=== PATIENT | female | born 1955 | race Caucasian/White ===

== ENCOUNTER 2019-07-24 10:58 | Observation (INO) | payer SELFPAY ==
[2019-07-24] MEDS ORDERED: Ondansetron 4 MG/2 ML SDV IVPUSH ONE (11:19)
[2019-07-24] MEDS ORDERED: Nitroglycerin 0.4 MG Tab.SL SL ONE ×3 (11:20→12:26)
[2019-07-24] MEDS ORDERED: Aspirin 325 MG Tab.EC PO ONE (11:24)
[2019-07-24 11:28] LABS: BLOOD UREA NITROGEN,BUN 16 mg/dL (7.0-18.0); CARBON DIOXIDE,CO2 20.2 mmol/L (21.0-32.0); CHLORIDE,CL 105 mmol/L (98-107); GLUCOSE RANDOM 116 mg/dL (74-106); POTASSIUM,K 3.5 mmol/L (3.5-5.1); SODIUM,NA 141 mmol/L (136-145)
[2019-07-24] MEDS ORDERED: Aspirin 325 MG Tab ONE (11:28)
--- NOTE | 2019-07-24 11:30 | EDM.PDOC ---
ED HPI GENERAL MEDICAL PROBLEM - General Chief Complaint: Chest Pain Stated Complaint: CHEST PAIN Time Seen by Provider: 07/24/19 11:18 Source of Information: Reports: Patient History Limitations: Reports: No Limitations - History of Present Illness INITIAL COMMENTS - FREE TEXT/NARRATIVE: This 64 year old female with no history of cardiac disease complains of sub- sternal chest pain (pressure and tightness) that started at 10:00 AM this morning. she complains of associated pain into her left jaw, left arm and mid back pain just to the left of her scapula. She also complains of mild SOB all of which started at 10:00AM. Her stated that she had a similar episode 5 years ago but not treated. She denies any other problems at this time. Onset: Sudden Duration: Constant Location: Reports: Chest, Back (and left upper to left mid back.) Quality: Reports: Pressure, Sharp Severity: Moderate Improves with: Reports: None Worsens with: Reports: None Associated Symptoms: Reports: Chest Pain, Diaphoresis, Nausea/Vomiting (nausea but no vomiting.), Shortness of Breath. Denies: Syncope chest and left side Pain Score (Numeric/FACES): 7 - Related Data Allergies Allergy/AdvReac Type Severity Reaction Status Date / Time Sulfa (Sulfonamide Allergy Other Verified 07/24/19 11:07 Antibiotics) Home Meds: Home Meds . [Unable to Verify Home Med List] 07/24/19 [History] Past Medical History Endocrine/Metabolic History: Reports: Hypothyroidism - Past Surgical History Respiratory Surgical History: Reports: Other (See Below) Other Respiratory Surgeries/Procedures: Lung Sx GI Surgical History: Reports: Appendectomy Female Surgical History: Reports: Other (See Below) Other Female Surgeries/Procedures: States she had a ovary surgery but unsure of for what Social & Family History - Family History Family Medical History: Noncontributory - Tobacco Use Smoking Status *Q: Never Smoker - Recreational Drug Use Recreational Drug Use: No ED ROS GENERAL - Review of Systems Review Of Systems: See Below Constitutional: Reports: No Symptoms HEENT: Reports: No Symptoms Respiratory: Reports: Shortness of Breath (mild.). Denies: Pleuritic Chest Pain , Cough Cardiovascular: Reports: Chest Pain (as noted above.), Blood Pressure Problem ( blood pressure is elevated in ED.). Denies: Dyspnea on Exertion, Lightheadedness, Orthopnea, Palpitations, Syncope Endocrine: Reports: No Symptoms GI/Abdominal: Reports: No Symptoms : Reports: No Symptoms Musculoskeletal: Reports: No Symptoms Skin: Reports: No Symptoms Neurological: Reports: No Symptoms Psychiatric: Reports: No Symptoms Immunologic: Reports: No Symptoms ED EXAM, GENERAL - Physical Exam Exam: See Below Exam Limited By: No Limitations General Appearance: Alert, WD/WN, No Apparent Distress Eye Exam: Bilateral Eye: EOMI, Normal Inspection, PERRL Ears: Normal External Exam, Normal Canal, Hearing Grossly Normal, Normal TMs Ear Exam: Bilateral Ear: Auricle Normal, Canal Normal, TM normal Nose: Normal Inspection, Normal Mucosa, No Blood Throat/Mouth: Normal Inspection, Normal Lips, Normal Teeth, Normal Gums, Normal Oropharynx, Normal Voice, No Airway Compromise Head: Atraumatic, Normocephalic Neck: Normal Inspection, Supple, Non-Tender, Full Range of Motion. No: Carotid Bruit, Thyromegaly Respiratory/Chest: No Respiratory Distress, Lungs Clear, Normal Breath Sounds, No Accessory Muscle Use. No: Crackles, Rales, Rhonchi, Wheezing Cardiovascular: Normal Peripheral Pulses, Regular Rate, Rhythm, No Edema, No Gallop, No JVD, No Murmur, No Rub. No: Diastolic Murmur, Systolic Murmur, Gallop/S3 Peripheral Pulses: 3+: Carotid (L), Carotid (R), Radial (L), Radial (R), Dorsalis Pedis (L), Dorsalis Pedis (R) GI/Abdominal: Normal Bowel Sounds, Soft, Non-Tender, No Organomegaly, No Distention, No Abnormal Bruit, No Mass Back Exam: Normal Inspection, Full Range of Motion, NT Extremities: Normal Inspection, Normal Range of Motion, Non-Tender, Normal Capillary Refill, No Pedal Edema Neurological: Alert, Oriented, CN II-XII Intact, Normal Cognition, Normal Gait, Normal Reflexes, No Motor/Sensory Deficits Psychiatric: Normal Affect, Normal Mood Skin Exam: Warm, Dry, Intact, Normal Color, No Rash Lymphatic: No Adenopathy Course - Vital Signs Text/Narrative:: I discussed with the patient and her and daughter all of her diagnostic studies. I went over the HEART score and the MACE. She has a HEART score of 4 based on her symptoms and her age of 64. Her Troponin 1 times two is negative. 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 She will be admitted to tel-obs per Dr. Foreman to Dr. Russell service. They agree with the admission. Last Recorded V/S: Last Vital Signs Temp 97.4 F 07/24/19 11:04 Pulse 61 07/24/19 16:10 Resp 18 07/24/19 16:10 BP 127/67 07/24/19 16:10 Pulse Ox 98 07/24/19 16:10 - Orders/Labs/Meds Orders: Active Orders 24 hr Category Date Time Status Admission Status [Patient Status] [ADT] Stat ADT 07/24/19 15:50 Active Cardiac Monitoring [RC] . DIRECTED Care 07/24/19 11:03 Active Saline Lock Insert [OM.PC] Stat Oth 07/24/19 11:04 Ordered Labs: Laboratory Tests 07/24/19 07/24/19 07/24/19 Range/Units 11:00 11:00 12:10 WBC 6.26 (4.0-11.0) K/uL RBC 4.43 (4.30-5.90) M/uL Hgb 12.7 (12.0-16.0) g/dL Hct 35.7 L (36.0-46.0) % MCV 80.6 (80.0-98.0) fL MCH 28.7 (27.0-32.0) pg MCHC 35.6 (31.0-37.0) g/dL RDW Std Deviation 37.7 (28.0-62.0) fl RDW Coeff of Cornelio 13 (11.0-15.0) % Plt Count 239 (150-400) K/uL MPV 9.60 (7.40-12.00) fL Neut % (Auto) 44.8 L (48.0-80.0) % Lymph % (Auto) 45.0 H (16.0-40.0) % [place] % (Auto) 9.3 (0.0-15.0) % Eos % (Auto) 0.6 (0.0-7.0) % Baso % (Auto) 0.3 (0.0-1.5) % Neut # (Auto) 2.8 (1.4-5.7) K/uL Lymph # (Auto) 2.8 H (0.6-2.4) K/uL [place] # (Auto) 0.6 (0.0-0.8) K/uL Eos # (Auto) 0.0 (0.0-0.7) K/uL Baso # (Auto) 0.0 (0.0-0.1) K/uL Sodium 141 (136-145) mmol/L Potassium 3.5 (3.5-5.1) mmol/L Chloride 105 (98-107) mmol/L Carbon Dioxide 20.2 L (21.0-32.0) mmol/L BUN 16 (7.0-18.0) mg/dL Creatinine 0.8 (0.6-1.0) mg/dL Est Cr Clr Drug Dosing 63.93 mL/min Estimated GFR (MDRD) > 60.0 ml/min Glucose 116 H (74-106) mg/dL Calcium 9.5 (8.5-10.1) mg/dL Magnesium 2.0 (1.8-2.4) mg/dL Total Bilirubin 0.5 (0.2-1.0) mg/dL AST 22 (15-37) IU/L ALT 33 (14-63) IU/L Alkaline Phosphatase 87 (46-116) U/L Troponin I < 0.050 (0.000-0.056) ng/mL Total Protein 7.8 (6.4-8.2) g/dL Albumin 4.0 (3.4-5.0) g/dL Globulin 3.8 (2.6-4.0) g/dL Albumin/Globulin Ratio 1.1 (0.9-1.6) Urine Color YELLOW Urine Appearance CLEAR Urine pH 7.5 (5.0-8.0) Ur Specific [place] <= 1.005 (1.001-1.035) Urine Protein NEGATIVE (NEGATIVE) mg/dL Urine Glucose (UA) NEGATIVE (NEGATIVE) mg/dL Urine Ketones NEGATIVE (NEGATIVE) mg/dL Urine Occult Blood NEGATIVE (NEGATIVE) Urine Nitrite NEGATIVE (NEGATIVE) Urine Bilirubin NEGATIVE (NEGATIVE) Urine Urobilinogen 0.2 (<2.0) EU/dL Ur Leukocyte Esterase NEGATIVE (NEGATIVE) 07/24/19 Range/Units 14:56 WBC (4.0-11.0) K/uL RBC (4.30-5.90) M/uL Hgb (12.0-16.0) g/dL Hct (36.0-46.0) % MCV (80.0-98.0) fL MCH (27.0-32.0) pg MCHC (31.0-37.0) g/dL RDW Std Deviation (28.0-62.0) fl RDW Coeff of Cornelio (11.0-15.0) % Plt Count (150-400) K/uL MPV (7.40-12.00) fL Neut % (Auto) (48.0-80.0) % Lymph % (Auto) (16.0-40.0) % [place] % (Auto) (0.0-15.0) % Eos % (Auto) (0.0-7.0) % Baso % (Auto) (0.0-1.5) % Neut # (Auto) (1.4-5.7) K/uL Lymph # (Auto) (0.6-2.4) K/uL [place] # (Auto) (0.0-0.8) K/uL Eos # (Auto) (0.0-0.7) K/uL Baso # (Auto) (0.0-0.1) K/uL Sodium (136-145) mmol/L Potassium (3.5-5.1) mmol/L Chloride (98-107) mmol/L Carbon Dioxide (21.0-32.0) mmol/L BUN (7.0-18.0) mg/dL Creatinine (0.6-1.0) mg/dL Est Cr Clr Drug Dosing mL/min Estimated GFR (MDRD) ml/min Glucose (74-106) mg/dL Calcium (8.5-10.1) mg/dL Magnesium (1.8-2.4) mg/dL Total Bilirubin (0.2-1.0) mg/dL AST (15-37) IU/L ALT (14-63) IU/L Alkaline Phosphatase (46-116) U/L Troponin I < 0.050 (0.000-0.056) ng/mL Total Protein (6.4-8.2) g/dL Albumin (3.4-5.0) g/dL Globulin (2.6-4.0) g/dL Albumin/Globulin Ratio (0.9-1.6) Urine Color Urine Appearance Urine pH (5.0-8.0) Ur Specific [place] (1.001-1.035) Urine Protein (NEGATIVE) mg/dL Urine Glucose (UA) (NEGATIVE) mg/dL Urine Ketones (NEGATIVE) mg/dL Urine Occult Blood (NEGATIVE) Urine Nitrite (NEGATIVE) Urine Bilirubin (NEGATIVE) Urine Urobilinogen (<2.0) EU/dL Ur Leukocyte Esterase (NEGATIVE) Meds: Medications Discontinued Medications Generic Name Dose Route Start Last Admin Trade Name Freq PRN Reason Stop Dose Admin Aspirin 325 mg 07/24/19 11:24 07/24/19 11:34 Ecotrin PO 07/24/19 11:25 Not Given ONETIME ONE Aspirin Confirm 07/24/19 11:28 07/24/19 12:24 Aspirin Administered 07/24/19 11:29 Not Given Dose 325 mg .ROUTE .STK-MED ONE Aspirin 325 mg 07/24/19 11:35 07/24/19 11:41 Aspirin PO 07/24/19 11:36 325 mg ONETIME ONE Administration Iopamidol 100 ml 07/24/19 12:09 07/24/19 12:09 Isovue Multipack-370 (76%) IVPUSH 07/24/19 12:10 100 ml ONETIME ONE Administration Ketorolac Tromethamine 30 mg 07/24/19 14:28 07/24/19 14:37 Toradol IVPUSH 07/24/19 14:29 30 mg ONETIME ONE Administration Nitroglycerin 0.4 mg 07/24/19 11:20 07/24/19 11:47 Nitrostat SL 07/24/19 11:21 0.4 mg ONETIME ONE Administration Nitroglycerin 0.4 mg 07/24/19 12:25 07/24/19 12:25 Nitrostat SL 07/24/19 12:26 0.4 mg ONETIME ONE Administration Nitroglycerin 0.4 mg 07/24/19 12:26 07/24/19 12:57 Nitrostat SL 07/24/19 12:27 Not Given ONETIME ONE Ondansetron HCl 4 mg 07/24/19 11:19 07/24/19 11:42 Zofran IVPUSH 07/24/19 11:20 4 mg ONETIME ONE Administration Departure - Departure Time of Disposition: 16:57 Disposition: Refer to Observation Condition: Fair Clinical Impression: Chest pain Qualifiers: Chest pain type: unspecified Qualified Code(s): R07.9 - Chest pain, unspecified Sepsis Event Note - Evaluation Sepsis Screening Result: No Definite Risk - Focused Exam Vital Signs: Vital Signs Temp Pulse Resp BP BP Pulse Ox 07/24/19 16:10 61 18 127/67 98 07/24/19 14:33 63 18 119/67 98 07/24/19 13:57 63 12 116/64 98 07/24/19 12:50 67 18 119/69 98 07/24/19 12:25 130/68 07/24/19 11:48 70 18 133/70 99 07/24/19 11:47 133/70 07/24/19 11:04 97.4 F 97 20 169/86 H 100 Date Exam was Performed: 07/24/19 Time Exam was Performed: 16:51 - My Orders Last 24 Hours: My Active Orders 07/24/19 11:03 Cardiac Monitoring [RC] . DIRECTED 07/24/19 11:04 Saline Lock Insert [OM.PC] Stat 07/24/19 15:50 Admission Status [Patient Status] [ADT] Stat - Assessment/Plan Last 24 Hours: My Active Orders 07/24/19 11:03 Cardiac Monitoring [RC] . DIRECTED 07/24/19 11:04 Saline Lock Insert [OM.PC] Stat 07/24/19 15:50 Admission Status [Patient Status] [ADT] Stat
[2019-07-24] MEDS ORDERED: Aspirin 325 MG Tab PO ONE (11:35)
--- NOTE | 2019-07-24 11:53 | CR ---
Chest: Portable view of the chest was obtained. Comparison: No prior chest imaging. Deformity is seen of several right ribs which appear old. Heart size is normal. Upper mediastinum is normal. Scoliosis is noted within the spine. No acute parenchymal change is seen within either lung. Impression: 1. Chronic bony findings as noted above. 2. Nothing acute is appreciated on portable chest x-ray. Diagnostic code #2 This report was dictated in [place] Standard Time
[2019-07-24] MEDS ORDERED: Iopamidol 755 MG/ML 200 ML Multipack Bottle IVPUSH ONE (12:09)
--- NOTE | 2019-07-24 12:42 | CT ---
CT chest and abdomen Technique: Multiple axial sections through the chest and abdomen were obtained. Intravenous contrast was utilized. Study has been performed as a pulmonary angiogram protocol. Comparison: Prior chest x-ray performed earlier on the same day (11:05 AM). Findings: Pulmonary arteries are well opacified. No filling defects arteries are seen to indicate pulmonary embolism. Aorta shows no aneurysm. Aorta also shows no dissection. Mediastinum and hilar region show no adenopathy. No axillary adenopathy is seen. Coronary artery calcification is seen. No pericardial thickening is seen. Small hiatal hernia is noted. Slight parenchymal density is noted within the right lung base. This is in area of previous healed rib fractures and findings most likely represent scarring. Lungs otherwise are clear. No acute parenchymal change is suspected. Abdominal aorta shows no aneurysm or dissection. Celiac axis and superior mesenteric arteries appear unremarkable. Renal arteries also appear within normal limits. Inferior mesenteric artery is patent. Common femoral arteries are patent. Liver and spleen shows no focal abnormality. Gallbladder contains no calcified gallstones. Adrenal glands show no nodule. Pancreas is within normal limits. Kidneys show symmetric contrast enhancement. No retroperitoneal adenopathy or mesenteric abnormalities are seen. Small fat-containing umbilical hernia is noted. Appendix not visualized on this exam. Bone window settings were reviewed which show mild degenerative change within the thoracic spine with mild kyphosis. No acute osseous finding is seen. Several old healed right-sided rib fractures are noted. Impression: 1. No findings of pulmonary embolism. 2. Aorta shows no aneurysm or dissection. 3. Other findings believed to be incidental as noted above. 4. Nothing acute is seen on CT study of the chest and abdomen. Diagnostic code #2 This report was dictated in [place] Standard Time
[2019-07-24] MEDS ORDERED: Ketorolac 30 MG/ML SDV IVPUSH ONE (14:28)
--- NOTE | 2019-07-24 16:37 | CT ---
This study was dictated as part of previous chest CT.
[2019-07-24] MEDS ORDERED: Ondansetron 4 MG Tab.DIS PO PRN (17:23)
--- NOTE | 2019-07-24 17:28 | PCM.HP.2 ---
<Mo Foreman - Last Filed: 07/24/19 20:06> H&P History of Present Illness - General Date of Service: 07/24/19 Admit Problem/Dx: Admission Diagnosis/Problem Admission Diagnosis/Problem Chest pain syndrome Source of Information: Patient History Limitations: Reports: No Limitations - History of Present Illness Initial Comments - Free Text/Narative: Patient is a 64-year-old female with a significant past medical history of hypothyroidism on nature-thyroid, lung carcinoma status post partial lobectomy ( RLL/2-years prior; w. interval nominal ct-scans): Presenting today with substernal chest pain rated at a 7 out of 10 with some radiation into her jaw and into her back. States the pain and shortness of breath came out of nowhere while she was getting ready in the morning, denied any major exertion prior to the episode occurring. Patient proceeded to the emergency department secondary to concerns that this may have been a heart attack. ED course: Chest x-ray: Unremarkable CT ANGIO: No aneurysm or dissection appreciated. Abdominal CTA: Report pending Blood pressure was elevated: No fluids were given; patient was however given nitroglycerin x3, Zofran, Toradol and 1 dose of full aspirin. Blood pressure improved. Pain had resolved. Bedside: Patient endorsed similar symptoms 5 to 6 years ago with a negative cardiac work-up. States she currently does not feel the pain that she had initially but still feels a little pressure in her chest. Denies any overt shortness of breath or recent symptoms. chest and left side Pain Score (Numeric/FACES): 7 - Related Data Allergies/Adverse Reactions: Allergies Allergy/AdvReac Type Severity Reaction Status Date / Time Sulfa (Sulfonamide Allergy Hives Verified 07/24/19 17:23 Antibiotics) Home Medications: Home Meds Cholecalciferol (Vitamin D3) [Vitamin D] 5,000 unit PO DAILY 07/24/19 [History] Fish Oil/[place]-3 Fatty Acids [Fish Oil 1,000 MG] 1 each PO DAILY 07/24/19 [ History] Thyroid,Pork [Nature-Throid] 1 tab PO .MONWEDFRISAT 07/24/19 [History] Thyroid,Pork [Nature-Throid] 1.5 tab PO .TUESTHURSUN 07/24/19 [History] Past Medical History HEENT History: Reports: Other (See Below) Other HEENT History: wears glasses Musculoskeletal History: Reports: Arthritis Endocrine/Metabolic History: Reports: Hypothyroidism Oncologic (Cancer) History: Reports: Other (See Below) Other Oncologic History: carcinoma in her lung that was removed - Past Surgical History Respiratory Surgical History: Reports: Other (See Below) Other Respiratory Surgeries/Procedures: Lung Sx carcinoma tumor GI Surgical History: Reports: Appendectomy Female Surgical History: Reports: Other (See Below) Other Female Surgeries/Procedures: States she had a ovary surgery but unsure of for what Social & Family History - Family History Family Medical History: Noncontributory - Tobacco Use Smoking Status *Q: Never Smoker Second Hand Smoke Exposure: No - Caffeine Use Caffeine Use: Reports: Coffee Caffeine Use Comment: uses decaffinated mostly - Recreational Drug Use Recreational Drug Use: No H&P Review of Systems - Review of Systems: Review Of Systems: See Below General: Denies: Fever, Chills, Malaise, Weakness, Fatigue HEENT: Reports: No Symptoms. Denies: Headaches Pulmonary: Reports: No Symptoms. Denies: Shortness of Breath, Wheezing Cardiovascular: Reports: No Symptoms. Denies: Chest Pain, Palpitations, Dyspnea on Exertion, Edema Gastrointestinal: Denies: Abdominal Pain, Constipation, Diarrhea Genitourinary: Reports: Other (did mention some dysuria 3-days prior which resolved spontaneously ). Denies: Dysuria, Frequency, Burning Musculoskeletal: Reports: No Symptoms Skin: Reports: No Symptoms Psychiatric: Denies: Confusion, Depression Neurological: Denies: Confusion, Dizziness, Headache, Numbness Exam - Exam Exam: See Below - Vital Signs Vital Signs: Last Vital Signs Temp 96.7 F 07/24/19 17:22 Pulse 68 07/24/19 17:22 Resp 17 07/24/19 17:22 BP 139/73 07/24/19 17:22 Pulse Ox 96 07/24/19 17:22 Weight: 86.5 kg - Exam Quality Assessment: No: Supplemental Oxygen General: Alert, Oriented, Cooperative HEENT: EOMI, Mucosa Moist & [place] Neck: Supple, Trachea Midline Lungs: Clear to Auscultation, Normal Respiratory Effort Cardiovascular: Regular Rate, Regular Rhythm GI/Abdominal Exam: Soft, Non-Tender, No Organomegaly Back Exam: Full Range of Motion Skin: Warm Neurological: Cranial Nerves Intact, Reflexes Equal Bilateral Neuro Extensive - Mental Status: Alert, Oriented x3, Normal Mood/Affect Neuro Extensive - Motor, Sensory, Reflexes: CN II-XII Intact, Normal Gait Psychiatric: Alert, Normal Affect, Normal Mood - Patient Data Lab Results Last 24 hrs: Laboratory Results - last 24 hr 07/24/19 07/24/19 07/24/19 Range/Units 11:00 11:00 12:10 WBC 6.26 (4.0-11.0) K/uL RBC 4.43 (4.30-5.90) M/uL Hgb 12.7 (12.0-16.0) g/dL Hct 35.7 L (36.0-46.0) % MCV 80.6 (80.0-98.0) fL MCH 28.7 (27.0-32.0) pg MCHC 35.6 (31.0-37.0) g/dL RDW Std Deviation 37.7 (28.0-62.0) fl RDW Coeff of Cornelio 13 (11.0-15.0) % Plt Count 239 (150-400) K/uL MPV 9.60 (7.40-12.00) fL Neut % (Auto) 44.8 L (48.0-80.0) % Lymph % (Auto) 45.0 H (16.0-40.0) % [place] % (Auto) 9.3 (0.0-15.0) % Eos % (Auto) 0.6 (0.0-7.0) % Baso % (Auto) 0.3 (0.0-1.5) % Neut # (Auto) 2.8 (1.4-5.7) K/uL Lymph # (Auto) 2.8 H (0.6-2.4) K/uL [place] # (Auto) 0.6 (0.0-0.8) K/uL Eos # (Auto) 0.0 (0.0-0.7) K/uL Baso # (Auto) 0.0 (0.0-0.1) K/uL Sodium 141 (136-145) mmol/L Potassium 3.5 (3.5-5.1) mmol/L Chloride 105 (98-107) mmol/L Carbon Dioxide 20.2 L (21.0-32.0) mmol/L BUN 16 (7.0-18.0) mg/dL Creatinine 0.8 (0.6-1.0) mg/dL Est Cr Clr Drug Dosing 63.93 mL/min Estimated GFR (MDRD) > 60.0 ml/min Glucose 116 H (74-106) mg/dL Calcium 9.5 (8.5-10.1) mg/dL Magnesium 2.0 (1.8-2.4) mg/dL Total Bilirubin 0.5 (0.2-1.0) mg/dL AST 22 (15-37) IU/L ALT 33 (14-63) IU/L Alkaline Phosphatase 87 (46-116) U/L Troponin I < 0.050 (0.000-0.056) ng/mL Total Protein 7.8 (6.4-8.2) g/dL Albumin 4.0 (3.4-5.0) g/dL Globulin 3.8 (2.6-4.0) g/dL Albumin/Globulin Ratio 1.1 (0.9-1.6) Urine Color YELLOW Urine Appearance CLEAR Urine pH 7.5 (5.0-8.0) Ur Specific [place] <= 1.005 (1.001-1.035) Urine Protein NEGATIVE (NEGATIVE) mg/dL Urine Glucose (UA) NEGATIVE (NEGATIVE) mg/dL Urine Ketones NEGATIVE (NEGATIVE) mg/dL Urine Occult Blood NEGATIVE (NEGATIVE) Urine Nitrite NEGATIVE (NEGATIVE) Urine Bilirubin NEGATIVE (NEGATIVE) Urine Urobilinogen 0.2 (<2.0) EU/dL Ur Leukocyte Esterase NEGATIVE (NEGATIVE) 07/24/19 Range/Units 14:56 WBC (4.0-11.0) K/uL RBC (4.30-5.90) M/uL Hgb (12.0-16.0) g/dL Hct (36.0-46.0) % MCV (80.0-98.0) fL MCH (27.0-32.0) pg MCHC (31.0-37.0) g/dL RDW Std Deviation (28.0-62.0) fl RDW Coeff of Cornelio (11.0-15.0) % Plt Count (150-400) K/uL MPV (7.40-12.00) fL Neut % (Auto) (48.0-80.0) % Lymph % (Auto) (16.0-40.0) % [place] % (Auto) (0.0-15.0) % Eos % (Auto) (0.0-7.0) % Baso % (Auto) (0.0-1.5) % Neut # (Auto) (1.4-5.7) K/uL Lymph # (Auto) (0.6-2.4) K/uL [place] # (Auto) (0.0-0.8) K/uL Eos # (Auto) (0.0-0.7) K/uL Baso # (Auto) (0.0-0.1) K/uL Sodium (136-145) mmol/L Potassium (3.5-5.1) mmol/L Chloride (98-107) mmol/L Carbon Dioxide (21.0-32.0) mmol/L BUN (7.0-18.0) mg/dL Creatinine (0.6-1.0) mg/dL Est Cr Clr Drug Dosing mL/min Estimated GFR (MDRD) ml/min Glucose (74-106) mg/dL Calcium (8.5-10.1) mg/dL Magnesium (1.8-2.4) mg/dL Total Bilirubin (0.2-1.0) mg/dL AST (15-37) IU/L ALT (14-63) IU/L Alkaline Phosphatase (46-116) U/L Troponin I < 0.050 (0.000-0.056) ng/mL Total Protein (6.4-8.2) g/dL Albumin (3.4-5.0) g/dL Globulin (2.6-4.0) g/dL Albumin/Globulin Ratio (0.9-1.6) Urine Color Urine Appearance Urine pH (5.0-8.0) Ur Specific [place] (1.001-1.035) Urine Protein (NEGATIVE) mg/dL Urine Glucose (UA) (NEGATIVE) mg/dL Urine Ketones (NEGATIVE) mg/dL Urine Occult Blood (NEGATIVE) Urine Nitrite (NEGATIVE) Urine Bilirubin (NEGATIVE) Urine Urobilinogen (<2.0) EU/dL Ur Leukocyte Esterase (NEGATIVE) Result Diagrams: 07/24/19 11:00 07/24/19 11:00 Sepsis Event Note - Evaluation Sepsis Screening Result: No Definite Risk - Focused Exam Vital Signs: Vital Signs Temp Pulse Resp BP BP Pulse Ox 07/24/19 17:22 96.7 F 68 17 139/73 96 07/24/19 16:10 61 18 127/67 98 07/24/19 14:33 63 18 119/67 98 07/24/19 13:57 63 12 116/64 98 07/24/19 12:50 67 18 119/69 98 07/24/19 12:25 130/68 07/24/19 11:48 70 18 133/70 99 07/24/19 11:47 133/70 07/24/19 11:04 97.4 F 97 20 169/86 H 100 Date Exam was Performed: 07/24/19 Time Exam was Performed: 20:06 Problem List Initiated/Reviewed/Updated: Yes Orders Last 24hrs: Active Orders 24 hr Category Date Time Status Admission Status [Patient Status] [ADT] Stat ADT 07/24/19 15:50 Active Cardiac Monitoring [RC] . DIRECTED Care 07/24/19 11:03 Active Up ad Prakash [RC] ASDIRECTED Care 07/24/19 17:22 Ordered Heart Healthy Diet [DIET] Diet 07/25/19 Breakfast Ordered CBC WITH AUTO DIFF [HEME] AM Lab 07/25/19 05:11 Ordered COMPREHENSIVE METABOLIC PN,CMP [CHEM] AM Lab 07/25/19 05:11 Ordered GLYCOSYLATED HEMOGLOBIN,HGBA1C [CHEM] Routine Lab 07/24/19 17:27 Ordered TROPONIN I [CHEM] Timed Lab 07/24/19 21:00 Ordered TSH [CHEM] Routine Lab 07/24/19 17:27 Ordered Acetaminophen [Tylenol] Med 07/24/19 17:23 Ordered 650 mg PO Q6H PRN Heparin Sodium Med 07/24/19 17:30 Ordered 5,000 units IVPUSH Q8H Ondansetron [Zofran ODT] Med 07/24/19 17:23 Ordered 4 mg PO Q4H PRN Pantoprazole [ProTONIX] Med 07/24/19 17:30 Ordered 40 mg PO DAILY Saline Lock Insert [OM.PC] Stat Oth 07/24/19 11:04 Ordered Medication Orders Acetaminophen (Tylenol) 650 mg PO Q6H PRN PRN Reason: Pain Heparin Sodium (Porcine) (Heparin Sodium) 5,000 units IVPUSH Q8H JANAE Ondansetron HCl (Zofran Odt) 4 mg PO Q4H PRN PRN Reason: Nausea Pantoprazole Sodium (Protonix) 40 mg PO DAILY [facility] Assessment/Plan Comment:: Assessment: 1. Chest pain/acute coronary syndrome rule out. 2. Past medical history: Lung cancer status post lobectomy, hypothyroidism. Plan Admit to observation. Full code. Telemetry. Diet: Heart healthy. Activity: Up ad prakash.. DVT prophylaxis: Heparin. GI prophylaxis: Pantoprazole 1. Chest pain: Troponin x3 ; initial 2 negative; will recheck troponin at 9 PM tonight. Continue on telemetry. Continue to monitor patient. EKG reassuring: No ST elevation depressions/; possible right bundle branch block. 2. Have ordered TSH secondary to history of hypothyroidism and concern for subtherapeutic treatment on nature thyroid; Have also ordered a glycosylated A1c. 3. We will continue to monitor patient; no focal deficits; however will consider CT head with concerns about previous history of lung carcinoma. 4. Patient understood plan. <Antonino Russell - Last Filed: 07/26/19 20:53> H&P History of Present Illness - General Admit Problem/Dx: Admission Diagnosis/Problem Admission Diagnosis/Problem Chest pain syndrome chest and left side Pain Score (Numeric/FACES): 1 Headache Pain Score (Numeric/FACES): 4 Exam - Vital Signs Vital Signs: Last Vital Signs Temp 36.1 C 07/25/19 11:00 Pulse 70 07/25/19 11:00 Resp 16 07/25/19 11:00 BP 141/72 H 07/25/19 11:00 Pulse Ox 95 07/25/19 11:00 - Patient Data Result Diagrams: 07/25/19 06:15 07/25/19 06:15 - Problem List (1) Chest pain SNOMED Code(s): 34045250 ICD Code: R07.9 - CHEST PAIN, UNSPECIFIED Status: Acute Qualifiers: Chest pain type: unspecified Qualified Code(s): R07.9 - Chest pain, unspecified Assessment/Plan Comment:: I performed a history and physical exam of the patient and discussed management with resident. I have reviewed the residents note and agree with documented findings and plan unless otherwise specified in my note.
[2019-07-24] MEDS: Pantoprazole 40 MG Tab.CR PO SCH (17:50)
[2019-07-24] MEDS: Heparin Sodium 5,000 Units/ML Vial IVPUSH SCH (17:59)
[2019-07-24] MEDS ORDERED: atorvaSTATin 10 MG Tab PO SCH (21:00)
[2019-07-25] MEDS: Heparin Sodium 5,000 Units/ML Vial IVPUSH SCH ×2 (01:49→09:46)
[2019-07-25] MEDS: Acetaminophen 325 MG Tab PO PRN ×2 (01:56→11:36)
[2019-07-25 07:05] LABS: BLOOD UREA NITROGEN,BUN 16 mg/dL (7.0-18.0); CARBON DIOXIDE,CO2 26.6 mmol/L (21.0-32.0); CHLORIDE,CL 108 mmol/L (98-107); GLUCOSE RANDOM 88 mg/dL (74-106); POTASSIUM,K 3.9 mmol/L (3.5-5.1); SODIUM,NA 143 mmol/L (136-145)
[2019-07-25] MEDS: Pantoprazole 40 MG Tab.CR PO SCH (09:45)
--- NOTE | 2019-07-25 12:27 | PCM.DCSUM1 ---
Discharge Summary - Hospital Course Free Text/Narrative:: Patient is a 64-year-old female with a significant past medical history of hypothyroidism on nature-thyroid, lung carcinoma status post partial lobectomy ( RLL/2-years prior; w. interval nominal ct-scans): Presented to ER with substernal chest pain rated at a 7 out of 10 with some radiation into her jaw and into her back. States the pain and shortness of breath came out of nowhere while she was getting ready in the morning, denied any major exertion prior to the episode occurring. In the ER EKG was obtained which didn't show any concerns of acute ischemic changes, CT angiogram and CT abdomen was obtained to ruled out PE and Aortic dissection both of which were negative. Patient received nitro which helped minimally pain. Troponin was negative. patient was admitted for ACS rule out. Patients tele was normal through night, No chest pain , just mild headache. Trops were trended and were negative. Intermittent high BP but patient wasn't keen on starting any meds. Wants to do outpatient f/u. Patient had mild lymphocytosis, and was asked to f/u with PCP for repeat CBC in few weeks. Patient was hemodynamically stable for d/c to home. Diagnosis: Stroke: No - Discharge Data Discharge Date: 07/25/19 Discharge Disposition: Home, Self-Care 01 Condition: Stable - Referral to Home Health Primary Care Physician: Ascencion Townsend, DO - Discharge Diagnosis/Problem(s) (1) Chest pain SNOMED Code(s): 83001804 ICD Code: R07.9 - CHEST PAIN, UNSPECIFIED Status: Acute Qualifiers: Chest pain type: unspecified Qualified Code(s): R07.9 - Chest pain, unspecified - Patient Instructions Diet: Heart Healthy Diet Activity: As Tolerated Driving: May Drive Today Showering/Bathing: May Shower Notify Provider of: Fever, Increased Pain, Swelling and Redness, Nausea and/or Vomiting - Discharge Plan Home Medications: Home Meds Cholecalciferol (Vitamin D3) [Vitamin D] 5,000 unit PO DAILY 07/24/19 [History] Fish Oil/[place]-3 Fatty Acids [Fish Oil 1,000 MG] 1 each PO DAILY 07/24/19 [ History] Thyroid,Pork [Nature-Throid] 1 tab PO .MONWEDFRISAT 07/24/19 [History] Thyroid,Pork [Nature-Throid] 1.5 tab PO .JEROESTHCAMILAUN 07/24/19 [History] Patient Handouts: Nonspecific Chest Pain, [id number] - Discharge Summary/Plan Comment DC Time >30 min.: No - Patient Data Vitals - Most Recent: Last Vital Signs Temp 36.1 C 07/25/19 11:00 Pulse 70 07/25/19 11:00 Resp 16 07/25/19 11:00 BP 141/72 H 07/25/19 11:00 Pulse Ox 95 07/25/19 11:00 Weight - Most Recent: 86.5 kg I&O - Last 24 hours: Intake & Output 07/24/19 07/25/19 07/25/19 22:59 06:59 14:59 Intake Total 1180 240 Output Total 700 Balance 480 240 Lab Results - Last 24 hrs: Laboratory Results - last 24 hr 07/24/19 07/24/19 07/24/19 Range/Units 11:00 11:00 12:10 WBC (4.0-11.0) K/uL RBC (4.30-5.90) M/uL Hgb (12.0-16.0) g/dL Hct (36.0-46.0) % MCV (80.0-98.0) fL MCH (27.0-32.0) pg MCHC (31.0-37.0) g/dL RDW Std Deviation (28.0-62.0) fl RDW Coeff of Cornelio (11.0-15.0) % Plt Count (150-400) K/uL MPV (7.40-12.00) fL Neut % (Auto) (48.0-80.0) % Lymph % (Auto) (16.0-40.0) % [place] % (Auto) (0.0-15.0) % Eos % (Auto) (0.0-7.0) % Baso % (Auto) (0.0-1.5) % Neut # (Auto) (1.4-5.7) K/uL Lymph # (Auto) (0.6-2.4) K/uL [place] # (Auto) (0.0-0.8) K/uL Eos # (Auto) (0.0-0.7) K/uL Baso # (Auto) (0.0-0.1) K/uL Sodium (136-145) mmol/L Potassium (3.5-5.1) mmol/L Chloride (98-107) mmol/L Carbon Dioxide (21.0-32.0) mmol/L BUN (7.0-18.0) mg/dL Creatinine (0.6-1.0) mg/dL Est Cr Clr Drug Dosing mL/min Estimated GFR (MDRD) ml/min Glucose (74-106) mg/dL Hemoglobin A1c 6.0 (4.5-6.2) % Calcium (8.5-10.1) mg/dL Total Bilirubin (0.2-1.0) mg/dL AST (15-37) IU/L ALT (14-63) IU/L Alkaline Phosphatase (46-116) U/L Troponin I (0.000-0.056) ng/mL Total Protein (6.4-8.2) g/dL Albumin (3.4-5.0) g/dL Globulin (2.6-4.0) g/dL Albumin/Globulin Ratio (0.9-1.6) TSH 3rd Generation 2.32 (0.36-3.74) uIU/mL Urine Color YELLOW Urine Appearance CLEAR Urine pH 7.5 (5.0-8.0) Ur Specific [place] <= 1.005 (1.001-1.035) Urine Protein NEGATIVE (NEGATIVE) mg/dL Urine Glucose (UA) NEGATIVE (NEGATIVE) mg/dL Urine Ketones NEGATIVE (NEGATIVE) mg/dL Urine Occult Blood NEGATIVE (NEGATIVE) Urine Nitrite NEGATIVE (NEGATIVE) Urine Bilirubin NEGATIVE (NEGATIVE) Urine Urobilinogen 0.2 (<2.0) EU/dL Ur Leukocyte Esterase NEGATIVE (NEGATIVE) 07/24/19 07/24/19 07/25/19 Range/Units 14:56 21:01 06:15 WBC 4.42 (4.0-11.0) K/uL RBC 3.65 L (4.30-5.90) M/uL Hgb 10.5 L (12.0-16.0) g/dL Hct 30.6 L (36.0-46.0) % MCV 83.8 (80.0-98.0) fL MCH 28.8 (27.0-32.0) pg MCHC 34.3 (31.0-37.0) g/dL RDW Std Deviation 39.2 (28.0-62.0) fl RDW Coeff of Cornelio 13 (11.0-15.0) % Plt Count 181 (150-400) K/uL MPV 9.70 (7.40-12.00) fL Neut % (Auto) 37.1 L (48.0-80.0) % Lymph % (Auto) 52.0 H (16.0-40.0) % [place] % (Auto) 9.0 (0.0-15.0) % Eos % (Auto) 1.4 (0.0-7.0) % Baso % (Auto) 0.5 (0.0-1.5) % Neut # (Auto) 1.6 (1.4-5.7) K/uL Lymph # (Auto) 2.3 (0.6-2.4) K/uL [place] # (Auto) 0.4 (0.0-0.8) K/uL Eos # (Auto) 0.1 (0.0-0.7) K/uL Baso # (Auto) 0.0 (0.0-0.1) K/uL Sodium (136-145) mmol/L Potassium (3.5-5.1) mmol/L Chloride (98-107) mmol/L Carbon Dioxide (21.0-32.0) mmol/L BUN (7.0-18.0) mg/dL Creatinine (0.6-1.0) mg/dL Est Cr Clr Drug Dosing mL/min Estimated GFR (MDRD) ml/min Glucose (74-106) mg/dL Hemoglobin A1c (4.5-6.2) % Calcium (8.5-10.1) mg/dL Total Bilirubin (0.2-1.0) mg/dL AST (15-37) IU/L ALT (14-63) IU/L Alkaline Phosphatase (46-116) U/L Troponin I < 0.050 < 0.050 (0.000-0.056) ng/mL Total Protein (6.4-8.2) g/dL Albumin (3.4-5.0) g/dL Globulin (2.6-4.0) g/dL Albumin/Globulin Ratio (0.9-1.6) TSH 3rd Generation (0.36-3.74) uIU/mL Urine Color Urine Appearance Urine pH (5.0-8.0) Ur Specific [place] (1.001-1.035) Urine Protein (NEGATIVE) mg/dL Urine Glucose (UA) (NEGATIVE) mg/dL Urine Ketones (NEGATIVE) mg/dL Urine Occult Blood (NEGATIVE) Urine Nitrite (NEGATIVE) Urine Bilirubin (NEGATIVE) Urine Urobilinogen (<2.0) EU/dL Ur Leukocyte Esterase (NEGATIVE) 07/25/19 Range/Units 06:15 WBC (4.0-11.0) K/uL RBC (4.30-5.90) M/uL Hgb (12.0-16.0) g/dL Hct (36.0-46.0) % MCV (80.0-98.0) fL MCH (27.0-32.0) pg MCHC (31.0-37.0) g/dL RDW Std Deviation (28.0-62.0) fl RDW Coeff of Cornelio (11.0-15.0) % Plt Count (150-400) K/uL MPV (7.40-12.00) fL Neut % (Auto) (48.0-80.0) % Lymph % (Auto) (16.0-40.0) % [place] % (Auto) (0.0-15.0) % Eos % (Auto) (0.0-7.0) % Baso % (Auto) (0.0-1.5) % Neut # (Auto) (1.4-5.7) K/uL Lymph # (Auto) (0.6-2.4) K/uL [place] # (Auto) (0.0-0.8) K/uL Eos # (Auto) (0.0-0.7) K/uL Baso # (Auto) (0.0-0.1) K/uL Sodium 143 (136-145) mmol/L Potassium 3.9 (3.5-5.1) mmol/L Chloride 108 H (98-107) mmol/L Carbon Dioxide 26.6 (21.0-32.0) mmol/L BUN 16 (7.0-18.0) mg/dL Creatinine 0.7 (0.6-1.0) mg/dL Est Cr Clr Drug Dosing 73.06 mL/min Estimated GFR (MDRD) > 60.0 ml/min Glucose 88 (74-106) mg/dL Hemoglobin A1c (4.5-6.2) % Calcium 8.5 (8.5-10.1) mg/dL Total Bilirubin 0.4 (0.2-1.0) mg/dL AST 18 (15-37) IU/L ALT 28 (14-63) IU/L Alkaline Phosphatase 68 (46-116) U/L Troponin I (0.000-0.056) ng/mL Total Protein 6.1 L (6.4-8.2) g/dL Albumin 3.0 L (3.4-5.0) g/dL Globulin 3.1 (2.6-4.0) g/dL Albumin/Globulin Ratio 1.0 (0.9-1.6) TSH 3rd Generation (0.36-3.74) uIU/mL Urine Color Urine Appearance Urine pH (5.0-8.0) Ur Specific [place] (1.001-1.035) Urine Protein (NEGATIVE) mg/dL Urine Glucose (UA) (NEGATIVE) mg/dL Urine Ketones (NEGATIVE) mg/dL Urine Occult Blood (NEGATIVE) Urine Nitrite (NEGATIVE) Urine Bilirubin (NEGATIVE) Urine Urobilinogen (<2.0) EU/dL Ur Leukocyte Esterase (NEGATIVE) Med Orders - Current: Current Medications Acetaminophen (Tylenol) 650 mg PO Q6H PRN PRN Reason: Pain Last Admin: 07/25/19 11:36 Dose: 650 mg Atorvastatin Calcium (Lipitor) 10 mg PO BEDTIME [facility] Last Admin: 07/24/19 20:32 Dose: Not Given Heparin Sodium (Porcine) (Heparin Sodium) 5,000 units IVPUSH Q8H [facility] Last Admin: 07/25/19 09:46 Dose: Not Given Ondansetron HCl (Zofran Odt) 4 mg PO Q4H PRN PRN Reason: Nausea Pantoprazole Sodium (Protonix) 40 mg PO DAILY [facility] Last Admin: 07/25/19 09:45 Dose: 40 mg Discontinued Medications Aspirin (Ecotrin) 325 mg PO ONETIME ONE Stop: 07/24/19 11:25 Last Admin: 07/24/19 11:34 Dose: Not Given Aspirin (Aspirin) Confirm Administered Dose 325 mg .ROUTE .STK-MED ONE Stop: 07/24/19 11:29 Last Admin: 07/24/19 12:24 Dose: Not Given Aspirin (Aspirin) 325 mg PO ONETIME ONE Stop: 07/24/19 11:36 Last Admin: 07/24/19 11:41 Dose: 325 mg Iopamidol (Isovue Multipack-370 (76%)) 100 ml IVPUSH ONETIME ONE Stop: 07/24/19 12:10 Last Admin: 07/24/19 12:09 Dose: 100 ml Ketorolac Tromethamine (Toradol) 30 mg IVPUSH ONETIME ONE Stop: 07/24/19 14:29 Last Admin: 07/24/19 14:37 Dose: 30 mg Nitroglycerin (Nitrostat) 0.4 mg SL ONETIME ONE Stop: 07/24/19 11:21 Last Admin: 07/24/19 11:47 Dose: 0.4 mg Nitroglycerin (Nitrostat) 0.4 mg SL ONETIME ONE Stop: 07/24/19 12:26 Last Admin: 07/24/19 12:25 Dose: 0.4 mg Nitroglycerin (Nitrostat) 0.4 mg SL ONETIME ONE Stop: 07/24/19 12:27 Last Admin: 07/24/19 12:57 Dose: Not Given Ondansetron HCl (Zofran) 4 mg IVPUSH ONETIME ONE Stop: 07/24/19 11:20 Last Admin: 07/24/19 11:42 Dose: 4 mg
== END 2019-07-25 13:10 | disposition home or self-care (01) ==
LOC: MW.ED 10:58 → MW.MS 16:02
PROVIDERS: ADMIT Student in an Organized Health Care Education/Training Program; ATTEND Student in an Organized Health Care Education/Training Program
DX: R07.2 Precordial pain (principal); E03.9 Hypothyroidism, unspecified; M19.90 Unspecified osteoarthritis, unspecified site; Z85.118 Personal history of other malignant neoplasm of bronchus and lung; Z90.2 Acquired absence of lung [part of]; Z88.2 Allergy status to sulfonamides
CPT/HCPCS: 36415; 71045; 71275; 74175; 80053; 81003; 83036; 83735; 84443; 84484; 85025; 93005; A9270; J1644; J1885; J2405; Q9967; 99284